=== PATIENT | female | born 1960 | race Caucasian/White ===

== ENCOUNTER → 2022-12-01 08:26 | Outpatient (CLI) | payer BC, SELFPAY ==
--- NOTE | 2022-12-01 08:31 | DI.RAD.S_ITS ---
PROCEDURE: XR FOOT RT MIN 3V INDICATIONS: Right foot injury TECHNIQUE: 3 views of the foot were acquired. COMPARISON: None. FINDINGS: Bones: There is a mildly displaced fracture seen involving the proximal phalanx the 5th toe. No additional fractures are detected. No suspicious bony lesions. Age-appropriate bony degenerative changes are seen. Incidental note is made of a bipartite lateral sesamoid bone. Soft tissues: No tibiotalar joint effusion. Achilles tendon appears normal. IMPRESSION: 5th toe fracture. Dictated by: Sanjeev Hong M.D. on 12/01/2022 at 11:21 Approved by: Sanjeev Hong M.D. on 12/01/2022 at 11:22
== END ==
PROVIDERS: Referring Provider Nurse Practitioner Family; Visit Provider Nurse Practitioner Family
DX: S92.511A Displaced fracture of proximal phalanx of right lesser toe(s), initial encounter for closed fracture (principal); X58.XXXA Exposure to other specified factors, initial encounter
CPT/HCPCS: 73630

== ENCOUNTER → 2025-05-14 07:25 | Outpatient (CLI) | payer MEDICARE, OTHER, SELFPAY | PROVIDERS: Visit Provider Nurse Practitioner Family | DX: R30.0 Dysuria (principal) | CPT/HCPCS: 87077; 87086; 87186 ==